=== PATIENT | male | born 1945 | race Caucasian/White ===

== ENCOUNTER 2024-06-20 13:21 | Outpatient (CLI) | payer MEDICARE ==
[2024-06-20] MEDS ORDERED: Iopamidol 370 76% 100 ML VIAL ONE (15:09)
== END 2024-06-20 13:22 | disposition home or self-care (01) ==
LOC: BICCT 13:21
PROVIDERS: ATTEND Internal Medicine Gastroenterology
DX: C20 Malignant neoplasm of rectum (principal); D50.9 Iron deficiency anemia, unspecified; R91.8 Other nonspecific abnormal finding of lung field; K62.89 Other specified diseases of anus and rectum
CPT/HCPCS: 36415; 71260; 74177; 82565; Q9967

== ENCOUNTER 2024-07-12 08:00 | Outpatient (CLI) | payer MEDICARE | END 2024-07-12 08:01 | disposition home or self-care (01) | LOC: PET 08:00 | PROVIDERS: ATTEND Internal Medicine Hematology & Oncology | DX: C20 Malignant neoplasm of rectum (principal); D50.8 Other iron deficiency anemias; C78.7 Secondary malignant neoplasm of liver and intrahepatic bile duct | CPT/HCPCS: 78815; A9552 ==

== ENCOUNTER 2025-03-21 08:00 | Outpatient (CLI) | payer MEDICARE | END 2025-03-21 09:37 | disposition home or self-care (01) | LOC: PET 08:00 | PROVIDERS: ATTEND Internal Medicine Hematology & Oncology | DX: C20 Malignant neoplasm of rectum (principal); D50.8 Other iron deficiency anemias; N13.30 Unspecified hydronephrosis; N20.1 Calculus of ureter | CPT/HCPCS: 78815; A9552 ==